=== PATIENT | male | born 1950 | race Caucasian/White ===

== ENCOUNTER 2016-06-28 13:31 | Outpatient (CLI) | payer OTHER ==
[~2016-06-28 13:31] MED LIST: CARAFATE EQUIVAL1 GM PO; CARDIZEM LA240 MG PO; FLONASE AL50 MCG/ACT; HYDROCHLOROTHIA25 MG PO; MELOXICAM7.5 MG PO; PRINIVIL5 MG PO; PROTONIX40 M1 IV; PROTONIX40 MG PO; ZANTAC300 MG PO
--- NOTE | 2016-06-28 14:06 | DIAGNOSTIC IMAGING REPORT ---
PROCEDURE: XR WRIST MIN 3 VIEWS - RIGHT INDICATION: PAIN/CONTUSION TECHNIQUE: Five views of the right wrist. COMPARISON: None. FINDINGS: Normal mineralization. No fractures. Normal osseous alignment. No suspicious soft-tissue calcification or radiodense foreign bodies. IMPRESSION: 1. Intact right wrist.
== END 2016-06-28 23:00 ==
LOC: XR SRH 13:31
DX: M25.531 Pain in right wrist (principal); S60.211A Contusion of right wrist, initial encounter